=== PATIENT | female | born 1985 | race Caucasian/White ===

== ENCOUNTER 2021-10-17 14:25 | Emergency (ER) | payer MEDICAID ==
[~2021-10-17] VITALS: Ht 157.5 cm; Wt 66.1 kg
[2021-10-17] MEDS ORDERED: buprenorphine/naloxone 8MG-2MG SUBlingual film SL STA ×4 (15:25→17:37)
[2021-10-17] MEDS ORDERED: LORazepam 1 MG tablet PO ONE (17:05)
[2021-10-17] MEDS ORDERED: cloNIDine 0.1 mg tablet PO ONE (17:40)
[2021-10-17] MEDS ORDERED: BUPR1FIL3 SL (19:22)
[2021-10-17] MEDS ORDERED: NALO4SPR (19:22)
[2021-10-17 19:33] VITALS: BP 164/78
--- NOTE | 2021-10-19 10:01 | NUR ---
PT CALLED REGARDING HER VISIT ON 10/17/21. STATES THAT 1 OF THE 2 MEDICATIONS THAT WERE SENT TO [facility] IN [place] WAS NOT RECIEVED VIA eTRANSMISSION. SUBOXONE (8MG-2MG SL FILM) 1 EAH FILM, 1 STRIP SL BID MDD 1 STRIP, #14 CALLED INTO [facility] IN [place] REQUESTED. PROVIDER NOTIFIED OF CALL IN RX
== END 2021-10-17 19:36 | disposition home or self-care (01) ==
LOC: ER 14:27
DX: F11.23 Opioid dependence with withdrawal (principal); F17.200 Nicotine dependence, unspecified, uncomplicated; F15.90 Other stimulant use, unspecified, uncomplicated; F19.90 Other psychoactive substance use, unspecified, uncomplicated; Z56.0 Unemployment, unspecified
CPT/HCPCS: 99285